=== PATIENT | female | born 1940 | race Caucasian/White ===

== ENCOUNTER → 2017-05-28 | Outpatient (CLI) | payer MEDICARE ==
[~2017-05-28] MED LIST: ALIGN PO; ALIGN10.5 MG PO; CALCAVITD PO; CALCIUM PO; CENTRUM SILVER1 EAC3 PO; CETI10 PO; Citalopram HBr10 MG PO; DILT180 PO; ESTROVEN 155 M155 MG PO; ESTROVEN PO; ETOD200 PO; FAMO40 PO; FLUT44OIA IH; METAMUCIL0.4 GM PO; MULVITMINF PO; PRAVASTATIN PO; Pepcid20 MG PO; Pravastatin Sod40 MG PO; ZYRTEC10 M2 PO
== END ==
LOC: PLD 07:47 → LAB SHORT 07:47
DX: D48.5 Neoplasm of uncertain behavior of skin (principal)
CPT/HCPCS: 88305

== ENCOUNTER → 2017-07-29 | Outpatient (CLI) | payer MEDICARE | END | disposition home or self-care (01) | LOC: PLD 07:47 → LAB SHORT 07:47 | DX: C44.319 Basal cell carcinoma of skin of other parts of face (principal) | CPT/HCPCS: 88305 ==

== ENCOUNTER → 2018-06-09 | Outpatient (CLI) | payer MEDICARE ==
[~2018-06-09] MED LIST changes: +ALDENDRONATE PO; +ATOR20 PO; +GUAI600T33 PO; +[UNRECOGNIZED DRUG - OTHER]
== END | disposition home or self-care (01) ==
LOC: LAB SHORT 11:38 → PLD 11:38
DX: D48.5 Neoplasm of uncertain behavior of skin (principal)
CPT/HCPCS: 88305

== ENCOUNTER → 2019-09-13 | Outpatient (CLI) | payer MEDICARE | END | disposition home or self-care (01) | LOC: LAB SHORT 08:11 → PLD 08:11 | DX: D04.61 Carcinoma in situ of skin of right upper limb, including shoulder (principal); D04.5 Carcinoma in situ of skin of trunk | CPT/HCPCS: 88305 ==

== ENCOUNTER → 2020-03-20 | Outpatient (CLI) | payer MEDICARE | END | disposition home or self-care (01) | LOC: PLD 14:37 → LAB SHORT 14:37 | DX: L81.4 Other melanin hyperpigmentation (principal) | CPT/HCPCS: 88305; 88342 ==

== ENCOUNTER → 2021-02-21 | Outpatient (CLI) | payer MEDICARE | LOC: LAB SHORT 09:16 | DX: L60.2 Onychogryphosis (principal); B35.1 Tinea unguium | CPT/HCPCS: 88305; 88312 ==

== ENCOUNTER → 2021-09-17 | Outpatient (CLI) | payer MEDICARE | END | disposition home or self-care (01) | LOC: PLD 08:34 | DX: D48.5 Neoplasm of uncertain behavior of skin (principal) ==

== ENCOUNTER → 2022-01-08 | Outpatient (CLI) | payer MEDICARE | END | disposition home or self-care (01) | LOC: LAB SHORT 12:01 | DX: D48.5 Neoplasm of uncertain behavior of skin (principal) | CPT/HCPCS: 88305 ==

== ENCOUNTER → 2022-03-28 | Outpatient (CLI) | payer MEDICARE | LOC: LAB SHORT 07:45 → PLD 07:45 | DX: L60.2 Onychogryphosis (principal); B35.1 Tinea unguium | CPT/HCPCS: 88305; 88312 ==

== ENCOUNTER 2022-09-17 06:58 | Day surgery (SDC) | payer MEDICARE ==
[2022-09-17] VITALS (15 sets, daily range): BP systolic 88–143; BP diastolic 55–81
[~2022-09-17] VITALS: Ht 162.6 cm; Wt 70.9 kg
--- NOTE | 2022-09-17 07:39 | NUR ---
PATIENT GAVE , LATESHA, GLASSES AND LEFT HEARING AID TO HOLD ON TO FOR SAFE KEEPING. LATESHA TO DRIVE PATIENT HOME POST-PROCEDURE.
--- NOTE | 2022-09-17 08:13 | NUR ---
09/17/22 0813 Uriel Leon HISTORY, CHART, MEDICATIONS AND ALLERGIES REVIEWED BEFORE START OF PROCEDURE. PATIENT CONFIRMS NPO STATUS AND AGREES WITH SCHEDULED PROCEDURE. 3-LEAD EKG REVIEWED WITH PHYSICIAN PRIOR TO START OF PROCEDURE. MONITOR INTACT WITH CONTINUOUS PULSE OXIMETRY,CAPNOGRAPHY, 3-LEAD EKG, INTERMITTENT BP. SUPPLEMENTAL O2 TO BE TITRATED THROUGHOUT PROCEDURE TO MAINTAIN O2 SATURATION ABOVE 90%. PATIENT DETERMINED TO BE ASA APPROPRIATE FOR PROPOFOL SEDATION PRIOR TO START OF PROCEDURE BY
--- NOTE | 2022-09-17 08:31 | NUR ---
REPORT RECIEVED. DR DUGGAN AT BEDSIDE. PT SITTING UP IN BED. VSS ON ROOM AIR
--- NOTE | 2022-09-17 08:41 | NUR ---
PT TOLERING PO FLUIDS. Discharge instructions reviewed with patient. Patient verbalizes understanding. Copy given to patient to take home.
--- NOTE | 2022-09-17 08:48 | NUR ---
Patient up to Ambulate independently. Gait steady. Discharged via wheelchair to private car for ride home.
== END 2022-09-17 08:55 | disposition home or self-care (01) ==
LOC: ORSCMMR 06:58 → ORD 08:00 → ORSCMMR 08:55
PROVIDERS: Internal Medicine Gastroenterology
PROC: 0DJD8ZZ Inspection of Lower Intestinal Tract, Via Natural or Artificial Opening Endoscopic (ICD-10-PCS; principal; 2022-09-17 08:00)
DX: K62.5 Hemorrhage of anus and rectum (principal); K62.3 Rectal prolapse; E78.00 Pure hypercholesterolemia, unspecified; F32.A Depression, unspecified; Z79.899 Other long term (current) drug therapy
CPT/HCPCS: J2704; J7120

== ENCOUNTER → 2023-01-16 | Outpatient (CLI) | payer MEDICARE | LOC: PLD 08:18 → LAB SHORT 08:18 | DX: D48.5 Neoplasm of uncertain behavior of skin (principal) | CPT/HCPCS: 88305 ==

== ENCOUNTER 2024-10-05 08:17 | Day surgery (SDC) | payer MEDICARE ==
[~2024-10-05] VITALS: Ht 162.6 cm; Wt 71.6 kg
[~2024-10-05 08:17] MED LIST changes: +Balanced Salt Epinephrine Irrigation Solution 500 mL IR SCH; +Moxifloxacin HCL 0.5 MG/0.1 ML 0.4MLSYR RIGHTEYE SCH; +Ondansetron 4 MG SoluTab MM PRN; +PHENYLEPHRINE\\TROPICAMIDE\\TETRACAINE OPHTHALMIC DILATING SOLN RIGHTEYE PRN; +Povidone-Iodine 450 DROP/30 ML Solution ONE; +Povidone-Iodine 450 DROP/30 ML Solution RIGHTEYE SCH; +Tetracaine HCl/Pf 0.5% Opth Soln 4 ml ONE; +diazePAM 5 MG,diazePAM 2 MG PO SCH
[2024-10-05] MEDS ORDERED: OMEPRAZOLE DR 20 MG (08:52)
--- NOTE | 2024-10-05 08:59 | NUR ---
10/05/24 0859 Shanna Ahumada CALL LIGHT WITHIN REACH. PT ON CONTINOUS PULSE OXIMETER FOR CLOSE MONITORING.
[2024-10-05] MEDS ORDERED: Tetracaine HCl 0.5% Opth Soln 15 ml RIGHTEYE ONE (09:28)
--- NOTE | 2024-10-05 09:35 | NUR ---
10/05/24 0935 Sandhya Nam 130/64 02 96% HR 64 RR 16
[2024-10-05 09:55] VITALS: BP 127/65
== END 2024-10-05 10:12 | disposition home or self-care (01) ==
LOC: ORSCSDS 08:17
PROVIDERS: Student in an Organized Health Care Education/Training Program
PROC: 08RJ3JZ Replacement of Right Lens with Synthetic Substitute, Percutaneous Approach (ICD-10-PCS; principal; 2024-10-05 10:00)
DX: H25.813 Combined forms of age-related cataract, bilateral (principal); Z79.899 Other long term (current) drug therapy
CPT/HCPCS: A9270; V2632

== ENCOUNTER 2024-10-20 11:02 | Day surgery (SDC) | payer MEDICARE ==
[~2024-10-20] VITALS: Ht 162.6 cm; Wt 71.3 kg
[~2024-10-20 11:02] MED LIST changes: +Moxifloxacin HCL 0.5 MG/0.1 ML 0.4MLSYR LEFTEYE SCH; -Moxifloxacin HCL 0.5 MG/0.1 ML 0.4MLSYR RIGHTEYE SCH; +OMEPRAZOLE DR 20 MG; +PHENYLEPHRINE\\TROPICAMIDE\\TETRACAINE OPHTHALMIC DILATING SOLN LEFTEYE PRN; -PHENYLEPHRINE\\TROPICAMIDE\\TETRACAINE OPHTHALMIC DILATING SOLN RIGHTEYE PRN; +Povidone-Iodine 450 DROP/30 ML Solution LEFTEYE SCH; -Povidone-Iodine 450 DROP/30 ML Solution RIGHTEYE SCH
--- NOTE | 2024-10-20 11:48 | NUR ---
10/20/24 1148 Susana Jenkins 1144: VALIUM 7MG PO GIVEN FOR ANXIETY LEVEL 0/10.
--- NOTE | 2024-10-20 12:12 | NUR ---
10/20/24 1212 Katia Rider HR:65 SPO2:99% ON 10L BLOW BY O2 BP:133/58
[2024-10-20 12:27] VITALS: BP 136/62
== END 2024-10-20 12:40 | disposition home or self-care (01) ==
LOC: ORSCSDS 11:02
PROVIDERS: Student in an Organized Health Care Education/Training Program
PROC: 08RK3JZ Replacement of Left Lens with Synthetic Substitute, Percutaneous Approach (ICD-10-PCS; principal; 2024-10-20 12:30)
DX: H25.812 Combined forms of age-related cataract, left eye (principal); Z96.1 Presence of intraocular lens; Z79.899 Other long term (current) drug therapy
CPT/HCPCS: A9270; V2632